=== PATIENT | female | born 1950 | race Caucasian/White ===

== ENCOUNTER 2022-07-02 12:15 | Emergency (ER) | payer MEDICARE, OTHER ==
[~2022-07-02] VITALS: Ht 170.2 cm; Wt 66.2 kg
[~2022-07-02 12:15] MED LIST: CEPHALEXIN500 M1 PO; TYLENOL325 MG PO
[2022-07-02] MEDS ORDERED: LISINOPRIL10 MG PO (12:32)
--- NOTE | 2022-07-02 16:50 | EKG ---
[facility] [address] [facility] [place] [address] Signed Sinus tachycardia with fusion complexes Nonspecific ST abnormality Abnormal ECG Confirmed by ANJEL TORRES MD ([id number]) on 07/02/2022 4:49:57 PM Electronically Signed By: ANJEL TORRES MD 07/02/22 1650 PATIENT NAME: KANIKA KANG Electrocardiogram DATE OF : 46 PHYSICIAN: ANJEL TORRES MD REPORT #: [id number] REPORT IS CONFIDENTIAL AND NOT TO BE RELEASED WITHOUT AUTHORIZATION
== END 2022-07-02 20:28 | disposition short-term general hospital (02) ==
LOC: ED 12:15
DX: S36.899A Unspecified injury of other intra-abdominal organs, initial encounter (principal); W19.XXXA Unspecified fall, initial encounter; J44.9 Chronic obstructive pulmonary disease, unspecified; I10 Essential (primary) hypertension; F17.210 Nicotine dependence, cigarettes, uncomplicated; Z20.822 Contact with and (suspected) exposure to COVID-19; Z86.16 Personal history of COVID-19
CPT/HCPCS: 36415; 71045; 74174; 74176; 80053; 81001; 83735; 84484; 85025; 86850; 86900; 86901; 86922; 87502; 93005; 93010; C9803; J7030; P9016; Q9967; U0003

== ENCOUNTER 2022-11-03 14:11 | Emergency (ER) | payer MEDICARE, OTHER ==
[~2022-11-03] VITALS: Ht 170.2 cm; Wt 66.2 kg
[~2022-11-03 14:11] MED LIST changes: +LISINOPRIL10 MG PO
--- NOTE | 2022-11-03 22:11 | EKG ---
[facility] [address] [facility] [place] [address] Signed Normal sinus rhythm Normal ECG When compared with ECG of 02-JUL-2022 12:16, fusion complexes are no longer present Confirmed by Torrey Topete MD () on 11/03/2022 10:11:00 PM Electronically Signed By: TORREY TOPETE MD 11/03/222210 PATIENT NAME: KANIKA KANG Electrocardiogram DATE OF : 46 PHYSICIAN: TORREY TOPETE MD REPORT #: [id number] REPORT IS CONFIDENTIAL AND NOT TO BE RELEASED WITHOUT AUTHORIZATION
== END 2022-11-03 23:06 | disposition short-term general hospital (02) ==
LOC: ED 14:11
DX: R58 Hemorrhage, not elsewhere classified (principal); I10 Essential (primary) hypertension; F17.200 Nicotine dependence, unspecified, uncomplicated; Z79.899 Other long term (current) drug therapy
CPT/HCPCS: 36415; 74177; 80053; 83690; 85025; 85610; 86850; 86900; 86901; 86922; 87502; 93005; 93010; 96360; 96361; 99285-25; J7030; U0003

== ENCOUNTER 2025-03-03 13:57 | Emergency (ER) | payer MEDICARE, OTHER ==
[~2025-03-03] VITALS: Ht 170.2 cm; Wt 70.3 kg
[2025-03-03] MEDS ORDERED: MIRTAZAPINE30 MG PO (14:11)
[2025-03-03] MEDS ORDERED: SODIUM CHLORIDE 0.9% 1,000 ML IV ONE (14:15)
[2025-03-03] MEDS ORDERED: MORPHINE SULFATE 4 MG/ML VIAL IV ONE (14:15)
[2025-03-03] MEDS ORDERED: ondansetron HCL 4 MG/2 ML VIAL IV ONE (14:15)
[2025-03-03 14:19] LABS: BILIRUBIN, URINE NEGATIVE (negative); BLOOD/HGB, URINE NEGATIVE (Negative); KETONE, URINE NEGATIVE (Negative); LEUK ESTERASE, URINE MODERATE (negative); NITRITE, URINE POSITIVE (negative)
[2025-03-03 14:31] LABS: BACTERIA, URINE 1+ /hpf (negative); CASTS, URINE NONE SEEN \\lpf; CRYSTALS, URINE NONE SEEN (0-1+); EPITHELIAL CELLS, URINE SQUAMOUS 3+ /lpf (0-1+); RED BLOOD CELLS, URINE 0-1 /hpf (0-5); WHITE BLOOD CELLS, URINE >50 /HPF (0-5)
[2025-03-03 14:32] LABS: COLLECTION TYPE, URINE CLEAN CATCH; REFLEX CULTURE, URINE No (No)
[2025-03-03] MEDS ORDERED: CEFTRIAXONE SODIUM 2 GM in SODIUM CHLORIDE 0.9% 100 ML IV ONE (14:45)
[2025-03-03 14:52] LABS: BASOPHILS 0.6 % (0.1-1.2); EOSINOPHILS 0.6 % (0.7-5.8); HEMATOCRIT 41.5 % (34.1-44.9); HEMOGLOBIN 13.6 g/dL (11.2-15.7); LYMPHOCYTES 25.5 % (19.3-51.7); MCH 27.4 PG (25.6-32.2); MCHC 32.8 g/dL (32.2-35.5); MCV 83.5 fL (79.4-94.8); MONOCYTES 10.7 % (4.7-12.5); NEUTROPHILS 62.4 % (34.0-71.1); PLATELET COUNT 171 K/uL (182-369); RBC 4.97 M/uL (3.93-5.22)
[2025-03-03 15:08] LABS: ALBUMIN/GLOBULIN RATIO 0.59 (1.1-2.4); ANION GAP 13.7 (7-21); BILIRUBIN, TOTAL 0.9 mg/dL (0.2-1.0); BUN/CREATININE RATIO 8.42 (6.0-28.6); CALCIUM 9.1 mg/dL (8.5-10.1); CREATININE, SERUM 0.95 mg/dL (0.55-1.02); POTASSIUM 3.7 mmol/L (3.5-5.1); PROTEIN, TOTAL 8.1 g/dL (6.4-8.2)
[2025-03-03] MEDS ORDERED: ONDANSETRON 4 MG HOME.PACK SL ONE (15:45)
[2025-03-03] MEDS ORDERED: CEFDINIR300 MG PO (15:45)
[2025-03-03] MEDS ORDERED: HYDROCODON-ACE1 EA10 PO (15:45)
[2025-03-03] MEDS ORDERED: ONDANSETRON ODT8 MG PO (15:45)
[2025-03-03] MEDS ORDERED: CEFDINIR 300 MG HOME.PACK PO ONE (15:45)
[2025-03-03] MEDS ORDERED: HYDROCODONE BIT/ACETAMINOPHEN 5/325 MG 1 TAB HOME.PACK PO ONE (15:45)
[2025-03-03 16:28] VITALS: BP 129/85
== END 2025-03-03 16:29 | disposition home or self-care (01) ==
LOC: ED 13:57
PROVIDERS: Family Medicine
DX: N12 Tubulo-interstitial nephritis, not specified as acute or chronic (principal); Z79.899 Other long term (current) drug therapy; F17.200 Nicotine dependence, unspecified, uncomplicated; I10 Essential (primary) hypertension
CPT/HCPCS: 36415; 74176; 80053; 81001; 85025; 96374; 96375; 99284-25; A9270; J0696; J2270; J2405; J7030

== ENCOUNTER 2025-03-09 10:59 | Emergency (ER) | payer MEDICARE, OTHER ==
[~2025-03-09] VITALS: Ht 170.2 cm; Wt 70.3 kg
[~2025-03-09 10:59] MED LIST changes: +CEFDINIR300 MG PO; +HYDROCODON-ACE1 EA10 PO; +MIRTAZAPINE30 MG PO; +ONDANSETRON ODT8 MG PO
--- OUTSIDE RECORDS SUMMARY | 2025-03-09 11:07 | XMS ---
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 Luis Alberto VISIT COUNT (12 MO.) 2 [facility] TOTAL 2 NOTE: Visits indicate total known visits. 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
[2025-03-09] MEDS ORDERED: OXYCODONE/APAP 5/325 TAB PO ONE (12:30)
[2025-03-09 14:23] LABS: BILIRUBIN, URINE NEGATIVE (negative); BLOOD/HGB, URINE NEGATIVE (Negative); KETONE, URINE NEGATIVE (Negative); LEUK ESTERASE, URINE NEGATIVE (negative); NITRITE, URINE NEGATIVE (negative)
[2025-03-09 14:39] LABS: EPITHELIAL CELLS, URINE SQUAMOUS 4+ /lpf (0-1+); RED BLOOD CELLS, URINE 0-1 /hpf (0-5); WHITE BLOOD CELLS, URINE 0-1 /HPF (0-5)
[2025-03-09 14:40] LABS: CRYSTALS, URINE NONE SEEN (0-1+)
[2025-03-09 14:41] LABS: BACTERIA, URINE NONE SEEN /hpf (negative); CASTS, URINE NONE SEEN \\lpf
[2025-03-09 14:42] LABS: REFLEX CULTURE, URINE No (No)
[2025-03-09 14:43] LABS: COLLECTION TYPE, URINE VOID
[2025-03-09] MEDS ORDERED: HYDROCODONE BIT/ACETAMINOPHEN 5/325 MG 1 TAB HOME.PACK PO ONE (16:00)
[2025-03-09 16:13] VITALS: BP 154/74
== END 2025-03-09 16:15 | disposition home or self-care (01) ==
LOC: ED 10:59
PROVIDERS: Emergency Medicine
DX: M54.50 Low back pain, unspecified (principal); G89.29 Other chronic pain; I10 Essential (primary) hypertension; F17.200 Nicotine dependence, unspecified, uncomplicated
CPT/HCPCS: 81001; 99284; A9270

== ENCOUNTER 2025-04-02 12:08 | Emergency (ER) | payer MEDICARE, OTHER ==
[~2025-04-02] VITALS: Ht 170.2 cm; Wt 63.1 kg
[~2025-04-02 12:08] MED LIST changes: -LISINOPRIL10 MG PO; +LISINOPRIL40 MG PO
--- OUTSIDE RECORDS SUMMARY | 2025-04-02 12:15 | XMS ---
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 Luis Alberto VISIT COUNT (12 MO[address] [facility] TOTAL 3 NOTE: Visits indicate total known visits. ED/UCC VISIT TRACKING (12 MO.) 04/02/2025 12:08 [facility] [place] TYPE: Emergency COMPLAINT: - ABD PAIN 03/09/2025 11:00 [facility] [place] TYPE: Emergency COMPLAINT: - FLANK PAIN DIAGNOSES: - Dorsalgia, unspecified - Essential (primary) hypertension - Low back pain, unspecified - Nicotine dependence, unspecified, uncomplicated - Other chronic pain 03/03/2025 13:[address] [facility] [place] TYPE: Emergency COMPLAINT: - FLANK PAIN DIAGNOSES: - Essential (primary) hypertension - Nicotine dependence, unspecified, uncomplicated - Other penitentiary (current) drug therapy - Tubulo-interstitial nephritis, not specified as acute or chronic - Unspecified abdominal pain INPATIENT VISIT TRACKING (12 MO.) No inpatient visits to display in this time frame [email or web address]
[2025-04-02 12:45] LABS: BASOPHILS 0.7 % (0.1-1.2); EOSINOPHILS 0.5 % (0.7-5.8); LYMPHOCYTES 22.4 % (19.3-51.7); MCH 28.1 PG (25.6-32.2); MCHC 33.3 g/dL (32.2-35.5); MCV 84.4 fL (79.4-94.8); MONOCYTES 13.5 % (4.7-12.5); NEUTROPHILS 62.7 % (34.0-71.1); RBC 4.73 M/uL (3.93-5.22)
[2025-04-02 13:00] LABS: ALT (SGPT) 22.0 U/L (14-59); AST (SGOT) 75.0 U/L (15-37); GLOMERULAR FILTRATION RATE,EST 73.0 mL/min (>60); PROTEIN, TOTAL 8.0 g/dL (6.4-8.2); UREA NITROGEN 7.0 mg/dL (7-18)
[2025-04-02] MEDS ORDERED: MORPHINE SULFATE 4 MG/ML VIAL IV ONE (15:00)
[2025-04-02 15:09] LABS: BLOOD/HGB, URINE NEGATIVE (Negative); KETONE, URINE NEGATIVE (Negative); LEUK ESTERASE, URINE NEGATIVE (negative); NITRITE, URINE NEGATIVE (negative)
[2025-04-02 16:00] VITALS: BP 119/78
== END 2025-04-02 16:00 | disposition home or self-care (01) ==
LOC: ED 12:08
PROVIDERS: Emergency Medicine
DX: I81 Portal vein thrombosis (principal); C22.0 Liver cell carcinoma; I10 Essential (primary) hypertension; F17.200 Nicotine dependence, unspecified, uncomplicated; Z79.899 Other long term (current) drug therapy
CPT/HCPCS: 36415; 74177; 80053; 81003; 83690; 85025; 96375; 99284-25; J2270; J2405; Q9967